=== PATIENT | male | born 1985 | race Two or more races ===

== ENCOUNTER 2023-04-12 08:45 | Outpatient (AMB) | payer OTHER, SELFPAY ==
--- NOTE | 2023-04-12 08:49 | MHC.PC.OV ---
Vital Signs 04/12/23 08:52 Height 5 ft 7 in Weight 174 lb 8 oz BMI 27.3 BP 142/92 H Blood Pressure Location Lt brachial Position Sitting Pulse 73 Pulse Source Pulse Oximeter Pulse Oximetry (%) 98 Oxygen Delivery Method Room Air Intake Visit Reasons: PROBATE PARALEGAL, establish care Intake Note: Patient is here today as a new patient to discuss bowel concerns. Allergies No Known Allergies Allergy (Verified 04/12/23 08:52) Tobacco use date assessed: 04/12/23 Dental Screening Dental Screen Date: 04/12/23 Did you have a dental visit in the last 12 months?: Yes Did you have a dental problem in the last 6 months where you did not have access to dental care?: No Was dental information given to patient?: Patient has dentist HPI HPI Comments History of Present Illness Details This is a 37-year-old male in today to establish care. He states that he has not seen a doctor in a couple years and he is interested on improving and maintaining his health. He has a chief complaint of acid reflux after he eats. He states that he has been using omeprazole p.r.n. to treat the reflex. Denies any nausea, vomiting, or fevers. States occasional constipation. Patient also states that he gets nervous when he comes into the doctor's office and that his blood pressure is usually lower than it was today. Patient has been educated to recheck his blood pressure at home to make sure that his values are closer to normal. [facility] Social History Housing: House Patient Tobacco Use Status: Never used Tobacco e-Cigarette/Vaping Use: Never Used service: No Current occupational status: employed Cognitive needs: No Hearing needs: No Vision needs: No Questionnaire PHQ-9 Over the last 2 weeks, how often have you been bothered by any of the following problems? 1. Little interest or pleasure in doing things: not at all 2. Feeling down, depressed, or hopeless: not at all 3. Trouble falling or staying asleep, or sleeping too much: not at all 4. Feeling tired or having little energy: not at all 5. Poor appetite or overeating: not at all 6. Feeling bad about yourself - or that you are a failure or have let yourself or your family down: not at all 7. Trouble concentrating on things, such as reading the newspaper or watching television: not at all 8. Moving or speaking so slowly that other people could have noticed. Or the opposite - being so fidgety or restless that you have been moving around a lot more than usual: not at all 9. Thoughts that you would be better off or of hurting yourself in some way: not at all Total score: 0 Depression Screening Interpretation: Negative Depression Screening Done: Yes 60375 - PHQ-9 Billing: Yes Source: Developed by Drs. Rodolfo Flores, Beatriz Milligan, Remy Mckenzie and colleagues, with an educational natalie from [employer] [facility]. Thrive Questionnaire Date Thrive assessed: 04/12/23 I am a: Patient What is your living situation today?: I have a steady place to live Within the past 12 months, did the food you bought not last and you didn't have the money to get more?: Never true Within the past 12 months, did you worry whether your food would run out before you got money to buy more?: Never true Do you have trouble paying for medicines?: No Do you have trouble getting transportation to medical appointments?: No Do you have trouble paying your heating and electricity bill?: No Do you have trouble taking care of your child, family member or friend?: No Do you have trouble with day-to-day activities such as bathing, preparing meals, shopping, managing finances, etc.?: No Are you currently unemployed and looking for a job?: No Are you interested in more education?: No Please select the resources that you would like help with: None Currently or been in a relationship where the following occur: no concerns reported AUDIT C Alcohol Use Questionnaire (AUDIT-C) 1. How often do you have a drink containing alcohol?: Monthly or less 2. How many drinks containing alcohol do you have on a typical day when you are drinking?: 1 or 2 3. How often do you have six or more drinks on one occasion?: Never Total Score: 1 Score Reviewed/Action Taken: Yes JUDY-7 AMB Questionnaire JUDY-7 Date JUDY - 7 assessed: 04/12/23 Feeling nervous, anxious, or on edge: 0 = Not at all Not being able to stop or control worryin = Not at all Worrying too much about different things: 0 = Not at all Trouble relaxin = Several days Being so restless that it is hard to sit still: 0 = Not at all Becoming easily annoyed or irritable: 0 = Not at all Feeling afraid as if something awful might happen: 0 = Not at all Total JUDY-7 score (0-4 normal; 5-9 mild; 10-14 moderate; 15-21 severe): 1 Source: Developed by Drs. Rodolfo Flores, Beatriz Milligan, Remy Mckenzie and colleagues, with an educational natalie from [facility]. JUDY-7 Assessment Billing JUDY-7 Assessment Tool: JUDY-7 Assessment 06723 Review of Systems Const Details: Constitutional : No Weight loss, No Fever, No Chills, No Fatigue, No Malaise ENT/Mouth : No sore throat, No Rhinorrhea, No hearing difficulties. Eyes: No Eye Pain, No Swelling, No Redness Cardiovascular : No Chest Pain, No SOB, No Dyspnea on Exertion, No Orthopnea, No Edema, No Palpitations Respiratory : No Cough, No Sputum, No Wheezing. Admits snoring. Gastrointestinal : No Nausea, No Vomiting, No Diarrhea, Admits Constipation and gas, No abdominal Pain, No Hematochezia, No Melena Genitourinary : No Dysuria, No Urinary Frequency, No Hematuria, Musculoskeletal : No joint pain, No Myalgias, No Joint Swelling Skin : No Skin Lesions, No rash Neuro : No Weakness, No Numbness, No Dizziness, No Headache Psych : No Anxiety/Panic, No Depression Heme/Lymph: No Bruising, No Bleeding,No Lymphadenopathy Endocrine : No Polyuria, No Polydipsia All other systems reviewed and are negative Physical exam (Primary Care) Vital Signs: Last Vital Signs Pulse 73 04/12/23 08:52 BP 142/92 H 04/12/23 08:52 Pulse Ox 98 04/12/23 08:52 Oxygen Delivery Method Room Air 04/12/23 08:52 Care Plan Goal for BP management: Patient will monitor blood pressure at home, states that he gets nervous when he comes into the doctor's office BMI result Body Mass Index 27.3 Tobacco/Smoking Status: Tobacco use Status Tobacco use date assessed 04/12/23 04/12/23 08:55 Patient Tobacco Use Status Never used Tobacco 04/12/23 08:55 e-Cigarette/Vaping Use Never Used 04/12/23 08:55 PHQ-9: PHQ-9 Score PHQ-9: Total score 0 04/12/23 09:54 Depression Screening Interpretation: Negative Thrive Assessment: Date of Thrive Assessment Date Thrive assessed 04/12/23 04/12/23 09:54 Currently or been in a relationship where the following occur: no concerns reported Const Other: Appearance: Alert.? Oriented X3.? No acute distress.? Head: Normocephalic, atraumatic, no step-offs or deformities Eyes: Pupils equal, round and reactive to light.? ENT: Pharynx normal.?TM intact and pearly farris. Neck: Normal inspection.? Neck supple.?Full ROM CVS: Normal heart rate and rhythm.? Pulses normal.?S1 and S2. Respiratory: No respiratory distress.? Breath sounds normal.? GI: Soft and nontender.?Patient has external hemorrhoid. Skin: Skin warm and dry.? Normal skin color.? Normal skin turgor.? Extremities: No lower extremity edema.? No calf ttp. 5/5 strength to bilateral upper and lower extremities Back: No midline tenderness, no C-spine tenderness, full range of motion, no CVA tenderness bilaterally Neuro: Oriented X 3.? No motor deficit.? No sensory deficit. CN 2-12 intact General: cooperative and no acute distress Results Reviewed Results Reviewed: Will call patient with lab results. Assessment and Plan Assessment & Plan (1) Encounter for routine adult physical exam with abnormal findings: Comment: Will draw lab CBC, CMP, lipid profile, UA, TSH, T4, vitamin-D, HIV. Patient was physical exam scheduled for 1 year. Code(s): Z00.01 - Encounter for general adult medical examination with abnormal findings (2) Snoring: Comment: Patient reportedly snores while sleeping. He will refer to Sleep Medicine to evaluate for apnea. Code(s): R06.83 - Snoring (3) GERD (gastroesophageal reflux disease): Comment: Patient has been instructed to use omeprazole 20 mg daily. Patient has also been instructed that when he has excessive gas he can use simethicone p.r.n. for relief. Patient will be trialed on omeprazole for 6 weeks. Code(s): K21.9 - Gastro-esophageal reflux disease without esophagitis Qualifiers: Esophagitis presence: without esophagitis Qualified Code(s): K21.9 - Gastro-esophageal reflux disease without esophagitis (4) External hemorrhoid: Comment: Patient has been instructed to use preparation H as directed. Code(s): K64.4 - Residual hemorrhoidal skin tags Orders: Orders TSH reflex Free T4 04/12/23 Z00.01 - Encounter for general adult medical examination with abnormal findings HIV Ab/Ag 04/12/23 Z00. - Encounter for general adult medical examination with abnormal findings Comprehensive Met. Panel 04/12/23 Z00. - Encounter for general adult medical examination with abnormal findings Complete Blood Count Auto Diff 04/12/23 Z00. - Encounter for general adult medical examination with abnormal findings Lipid Panel 04/12/23 Z00. - Encounter for general adult medical examination with abnormal findings Vitamin D 25-OH (D2 and D3) 04/12/23 Z00. - Encounter for general adult medical examination with abnormal findings UA CC w/rflx Micro + Cult 04/12/23 Z00. - Encounter for general adult medical examination with abnormal findings Referrals Sleep Medicine Referral R06.83 - Snoring Medications: New omeprazole 20 mg PO DAILY 30 caps 0RF simethicone (Gas Relief (simethicone)) 180 mg PO DAILY 20 caps 0RF Patient Instructions: Patient has been educated on the medication how to take them properly. The been educated on common side effect. It has been educated did on signs of worsening symptom when to report back to the office. Coding Level of Care Code New Pt Level 4 (29806) Diagnoses Encounter for routine adult physical exam with abnormal findings Z00.01 Snoring R06.83 Gastroesophageal reflux disease without esophagitis K21.9 Esophagitis presence: without esophagitis External hemorrhoid K64.4 Additional Codes JUDY-7 Assessment Billing - JUDY-7 Assessment Tool: JUDY-7 Assessment 14203 ([id number]) Time Spent (min) 30
[2023-04-12 08:52] VITALS: BP 142/92; PULSE 73; O2SAT 98; BMI 27.3
== END 2023-04-12 09:37 | disposition home or self-care (01) ==
PROVIDERS: Visit Provider Nurse Practitioner Primary Care
DX: Z00.01 Encounter for general adult medical examination with abnormal findings (principal); K21.9 Gastro-esophageal reflux disease without esophagitis; R06.83 Snoring; K64.4 Residual hemorrhoidal skin tags
CPT/HCPCS: 99203; 99385

== ENCOUNTER 2023-04-12 09:46 | Outpatient (REF) | payer OTHER, SELFPAY ==
[2023-04-12 13:49] LABS: MANUAL DIFF FLAG NO
[2023-04-12 14:03] LABS: Basophils Percent Auto 1.5 % (0-2); Eosinophils Percent Auto 1.5 % (0-4); Hematocrit 43.8 % (42.0-52.0); Hemoglobin 14.6 g/dl (14.0-18.0); Lymphocytes Absolute Auto 1.4 X10*3/uL (1.2-4.9); Lymphocytes Percent Auto 50.4 % (20-40); Mean Corpuscular HGB Conc 33.3 g/dl (31.0-36.0); Mean Corpuscular Hemoglobin 29.9 pg (27.0-33.0); Mean Corpuscular Volume 89.6 fL (80.0-98.0); Mean Platelet Volume 12.2 fL (9.4-12.4); Monocytes Absolute Auto 0.2 X10*3/uL (0.1-1.2); Monocytes Percent Auto 7.4 % (2-11); Neutrophils Absolute Auto 1.1 x10*3/uL (2.0-8.3); Neutrophils Percent Auto 39.2 % (45-73); Platelet Count 217 X10*3/uL (160-400); Red Blood Count 4.89 X10*6/uL (4.60-5.80); Red Cell Distribution Width 12.6 % (11.0-16.0); White Blood Count 2.7 X10*3/uL (4.8-10.8)
[2023-04-12 14:04] LABS: Appearance Urine Clear; Color Urine Yellow; Glucose Urine UA Negative (Negative); Leukocyte Esterase Urine Negative (Negative); Nitrite Urine Negative (Negative); PH 6.5 (5.0-9.0); Urine Blood Negative (Negative); Urine Ketones Negative (Negative); Urine Protein Negative (Neg-Trace)
[2023-04-12 14:26] LABS: Alanine Aminotransferase 29 U/L (0-40); Albumin Level 4.6 g/dL (3.5-5.0); Alkaline Phosphatase 39 U/L (39-117); Anion Gap 12 (12-20); Aspartate Amino Transferase 22 U/L (5-37); Bilirubin Total 0.8 mg/dL (0.0-1.0); Blood Urea Nitrogen 11 mg/dL (9-16); Calcium 9.6 mg/dL (8.4-10.2); Carbon Dioxide 26 mmol/L (22-29); Chloride 105 mmol/L (96-108); Cholesterol 210 mg/dL (<200); Estimated Glomerular Filt Rate > 60; Glucose Random 109 mg/dL (60-115); HDL Cholesterol 52 mg/dL (>40); LDL Cholesterol Calculated 144 mg/dL (<100); Potassium 4.4 mmol/L (3.3-5.1); Sodium 139 mmol/L (135-145); Total Protein 7.4 g/dL (6.5-8.0); Triglycerides 72 mg/dL (<150)
[2023-04-12 14:32] LABS: TSH reflex Free T4 1.77 uIU/mL (0.32-4.0)
[2023-04-13 08:18] LABS: HIV AB/AG Nonreactive (Nonreactive); HIV Num 1 0.04 S/CO (0.00-0.99)
[2023-04-15 13:04] LABS: Vitamin D 25-OH, D2 <4 ng/mL; Vitamin D 25-OH, D3 13 ng/mL; Vitamin D 25-OH, Total 13 ng/mL (30-100)
== END 2023-04-12 09:47 | disposition home or self-care (01) ==
LOC: HO.HMGCLDS 09:46
PROVIDERS: PCP Nurse Practitioner Primary Care; Visit Provider Nurse Practitioner Primary Care
DX: Z00.01 Encounter for general adult medical examination with abnormal findings (principal)
CPT/HCPCS: 36415; 80053; 80061; 81003; 82306; 84443; 85025; 87389

== ENCOUNTER 2023-06-17 07:55 | Outpatient (AMB) | payer OTHER, SELFPAY ==
--- NOTE | 2023-06-17 08:15 | MHC.OFFVIS ---
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 Snores a lot and very loud Allergies No Known Allergies Allergy (Verified 06/17/23 08:22) HPI HPI Comments History of Present Illness Details 38 y/o male patient presents for new in-person visit for sleep consultation. binder cutter ID [id number] utilized. Pt reports snoring, witnessed apnea spells, and disrupted sleep. He wakes up gasping and acid reflux. He has non refreshing sleep with daytime tiredness. Sleep questionnaire: Have you ever been diagnosed with a sleep disorder? No. Have you ever had a sleep study in the past? No. Have you ever been treated for a sleep disorder? No. Do you take medications for a sleep disorder? No. Do you snore? Yes. Do you wake up gasping at night? Yes. Do you have episodes of apneas? Yes If yes, are they witnessed? Yes. Do you have episodes of nocturnal chest pain or dyspnea? Yes. Do you have difficulty initiating sleep? No. Do you have difficulty maintaining sleep? Yes. Do you wake up tired? Yes. Do you have headaches upon awakening? No. Do you wake up with dry mouth or throat? Yes, sometimes. Do you have GERD? Yes. Do you have nocturia? No. Do you have nocturnal leg cramps? No. Do you have symptoms of restless legs? No. Do you act out your dreams? No. Sleep hygiene questionnaire: What is your usual sleep routine? Usual bedtime is at 11 pm; Usual wake up time is at 7 am. Do you take naps? No. Is your sleep environment cool, dark, and quiet? Yes. Do you exercise? Yes. Do you take caffeine or other stimulants? Yes, coffee in the morning and in the afternoon. Do you use electronics in bed? Yes. What is your work schedule? 9 to 5 pm Hypersomnolence questionnaire: Do you have daytime tiredness or fatigue? Yes. Do you easily fall asleep when inactive? No. Have you ever had episodes of sudden weakness? No. Have you ever had episodes of sudden weakness associated with strong emotions? No. PFSH Social History Housing: House Patient Tobacco Use Status: Never used Tobacco e-Cigarette/Vaping Use: Never Used service: No Current occupational status: employed Cognitive needs: No Hearing needs: No Vision needs: No Review of Systems Const All systems reviewed & are unremarkable except as noted in HPI and below Physical Exam Vital Signs: Last Vital Signs Pulse 65 06/17/23 08:23 BP 120/84 06/17/23 08:23 Pulse Ox 100 06/17/23 08:23 Oxygen Delivery Method Room Air 06/17/23 08:23 BMI result Body Mass Index 26.4 Const General: cooperative Nutritional Appearance: overweight Orientation/consciousness: patient oriented x3 Neck Neck: Yes full ROM and Yes supple Resp Effort & Inspection: normal respiratory effort and able to speak in complete sentences Neuro General: patient oriented x3 and gait normal Cranial nerves: Yes CN's II-XII intact bilaterally Cognition (Neuro): normal cognition Gait exam (Neuro): Normal gait present Motor exam (neuro): 5/5 motor strength present throughout Psych Appearance: grossly normal Mental Status: mental status grossly normal Speech and movement: Normal speech and movement present Affect: normal affect Attitude: cooperative Assessment & Plan Assessment & Plan (1) Daytime sleepiness: Code(s): R40.0 - Somnolence (2) Snoring: Comment: Patient reportedly snores while sleeping. He will refer to Sleep Medicine to evaluate for apnea. Code(s): R06.83 - Snoring (3) GERD (gastroesophageal reflux disease): Comment: Patient has been instructed to use omeprazole 20 mg daily. Patient has also been instructed that when he has excessive gas he can use simethicone p.r.n. for relief. Patient will be trialed on omeprazole for 6 weeks. Code(s): K21.9 - Gastro-esophageal reflux disease without esophagitis Qualifiers: Esophagitis presence: without esophagitis Qualified Code(s): K21.9 - Gastro-esophageal reflux disease without esophagitis Plan Pt is advised to undergo home sleep study to assess for sleep apnea. Will f/u with pt after study to discuss results and appropriate treatment options. Sleep hygiene education provided. Advised patient not to have dinner late time and limit afternoon coffee intake to prevent acid reflux. Pt to call with any worsening concerns or questions. Orders: Orders RT home sleep study Today R06.83 - Snoring, R40.0 - Somnolence Coding Level of Care Code New Pt Level 3 (27058) Diagnoses Daytime sleepiness R40.0 Snoring R06.83 Gastroesophageal reflux disease without esophagitis K21.9 Esophagitis presence: without esophagitis
[2023-06-17 08:23] VITALS: BP 120/84; PULSE 65; O2SAT 100; BMI 26.4
== END 2023-06-17 08:52 | disposition home or self-care (01) ==
PROVIDERS: PCP Nurse Practitioner Primary Care; Visit Provider Nurse Practitioner Family
DX: R40.0 Somnolence (principal); R06.83 Snoring; K21.9 Gastro-esophageal reflux disease without esophagitis
CPT/HCPCS: 99203

== ENCOUNTER → 2023-06-17 07:55 | Outpatient (BNVA) | payer OTHER, SELFPAY | PROVIDERS: PCP Nurse Practitioner Primary Care; Visit Provider Nurse Practitioner Family | DX: R06.83 Snoring (principal); R40.0 Somnolence; K21.9 Gastro-esophageal reflux disease without esophagitis | CPT/HCPCS: 99202 ==

== ENCOUNTER → 2023-08-16 07:52 | Outpatient (REF) | payer OTHER, SELFPAY | LOC: HO.SL 07:52 | PROVIDERS: PCP Nurse Practitioner Primary Care; Visit Provider Nurse Practitioner Family | DX: G47.33 Obstructive sleep apnea (adult) (pediatric) (principal); R06.83 Snoring; R40.0 Somnolence | CPT/HCPCS: 95806 ==

== ENCOUNTER → 2023-08-16 08:22 | Outpatient (BNV) | payer OTHER, SELFPAY | PROVIDERS: PCP Nurse Practitioner Primary Care; Visit Provider Psychiatry & Neurology Neurology | DX: G47.33 Obstructive sleep apnea (adult) (pediatric) (principal) | CPT/HCPCS: 95806 ==

== ENCOUNTER 2024-02-16 09:33 | Outpatient (AMB) | payer OTHER, SELFPAY ==
--- NOTE | 2024-02-16 10:17 | MHC.OFFWIV ---
Intake Vital Signs 02/16/24 10:19 Height 5 ft 7 in Weight 170 lb BMI 26.6 BP 124/80 Blood Pressure Location Rt brachial Position Sitting Pulse 70 Pulse Source Pulse Oximeter Pulse Oximetry (%) 97 Oxygen Delivery Method Room Air Intake Visit Reasons: EP pain when utilizing the bathroom & blood Intake Note: Patient here for hemorrhoids that he noticed on Wednesday, he states he used the bathroom today and was bleeding. He has used OTC cream which has not helped. Patient Tobacco Use Status: Never used Tobacco Allergies No Known Allergies Allergy (Verified 02/16/24 10:20) Do you need a note to return to daycare/school/sports/work: Yes HPI EP pain when utilizing the bathroom & blood HPI Details This note is constructed using voice recognition software. While every effort has been made to ensure accuracy, export sales assistant errors may have been included. The patient is a 38 year old male who presents to the clinic today with bleeding hemorrhoids since Wednesday. He reports that he has pain when he is moving his bowels, which have been hard and less frequent than normal. He has had some blood on the tissue after this. He denies abdomen pain, loss of appetite, nausea vomiting, diarrhea. [facility] Social History Housing: House Patient Tobacco Use Status: Never used Tobacco e-Cigarette/Vaping Use: Never Used service: No Current occupational status: employed Cognitive needs: No Hearing needs: No Vision needs: No Review of Systems Const All systems reviewed & are unremarkable except as noted in HPI and below Physical Exam Vital Signs: Last Vital Signs Pulse 70 02/16/24 10:19 BP 124/80 02/16/24 10:19 Pulse Ox 97 02/16/24 10:19 Oxygen Delivery Method Room Air 02/16/24 10:19 BMI result Body Mass Index 26.6 Const General: cooperative, healthy appearing, comfortable, no acute distress and alert Orientation/consciousness: patient oriented x3 Limitations: no limitations Resp Effort & Inspection: normal respiratory effort and able to speak in complete sentences GI Inspection: Yes normal to inspection Palpation (GI): Soft to palpation and nontender Percussion: Yes normal to percussion Auscultation: normal bowel sounds Rectal Exam - Male: Yes External hemorrhoid(s) present (with small area of excoriation) Neuro General: patient oriented x3 Psych Appearance: grossly normal Mental Status: mental status grossly normal Speech and movement: Normal speech and movement present Affect: normal affect Assessment & Plan Assessment & Plan (1) External hemorrhoid: Code(s): K64.4 - Residual hemorrhoidal skin tags Plan: Hydrocortisone suppository sent for symptomatic management, as well as Colace for stool softening. Advised patient that he needs to keep his stool soft to help reduce symptoms. OTC medication advised for pain. Advised follow up with worsening or failure to resolve. Plan See above for full details and plan. Medications: New hydrocortisone acetate 25 mg DC BID 6 days PRN 12 ea 0RF hemorrhoids docusate sodium 100 mg PO BID 10 days 20 caps 0RF Coding Level of Care Code Est Pt Level 3 (32781) Diagnoses External hemorrhoid K64.4
[2024-02-16 10:19] VITALS: BP 124/80; PULSE 70; O2SAT 97; BMI 26.6
== END 2024-02-16 11:13 | disposition home or self-care (01) ==
PROVIDERS: PCP Nurse Practitioner Primary Care; Visit Provider Registered Nurse
DX: K64.4 Residual hemorrhoidal skin tags (principal)

== ENCOUNTER → 2024-02-16 09:33 | Outpatient (BNVA) | payer OTHER, SELFPAY | PROVIDERS: PCP Nurse Practitioner Primary Care; Visit Provider Registered Nurse | DX: K64.4 Residual hemorrhoidal skin tags (principal) | CPT/HCPCS: 99212 ==

== ENCOUNTER 2024-04-17 12:43 | Outpatient (AMB) | payer OTHER, SELFPAY ==
[2024-04-17 13:42] VITALS: BP 136/86; PULSE 75; O2SAT 99; BMI 27.7
--- NOTE | 2024-04-17 13:42 | MHC.PC.OV ---
Vital Signs 04/17/24 13:42 Height 5 ft 7 in Weight 177 lb BMI 27.7 BP 136/86 Blood Pressure Location Lt brachial Position Sitting Pulse 75 Pulse Source Pulse Oximeter Pulse Oximetry (%) 99 Oxygen Delivery Method Room Air Intake Visit Reasons: transfer from [facility] Intake Note: Pt is here today transfer from [facility]/ Pt request PSA test: Family Hx father of prostate cancer Allergies No Known Allergies Allergy (Verified 04/17/24 14:03) Medication List - Last Reconciled 04/17/24 by Shelby Lara MD No Known Home Meds Tobacco use date assessed: 04/17/24 Dental Screening Dental Screen Date: 04/17/24 Did you have a dental visit in the last 12 months?: No Did you have a dental problem in the last 6 months where you did not have access to dental care?: No Was dental information given to patient?: Patient declined HPI transfer from [facility] HPI Details 38-year-old male here to establish care with new PCP and for a physical exam - Has hypertension diagnosed earlier, with recent blood pressure readings noted to be slightly elevated. - Hyperlipidemia was identified last year; the patient was advised to manage cholesterol levels through diet and exercise. - Vitamin D deficiency was previously diagnosed, with past values noted at 13 ng/mL - Reflux symptoms occur postprandially, particularly after consuming tomatoes, manifesting as heartburn. - Hemorrhoids previously treated with topical cream, with symptom improvement noted since the last visit. - Leukopenia was noted on prior blood work with a WBC count of 2.7, prompting ongoing monitoring to rule out underlying pathology. PENDING SALE TO [facility] Medical History (Updated 04/23/24 @ 22:16 by Shelby Lara MD) Leukopenia Heartburn symptom External hemorrhoid Family History (Updated 04/17/24 @ 13:58 by Jory Shaikh CMA) Father Prostate cancer Paternal Uncle Prostate cancer Social History Housing: House Patient Tobacco Use Status: Never used Tobacco e-Cigarette/Vaping Use: Never Used service: No Current occupational status: employed Cognitive needs: No Hearing needs: No Vision needs: No Questionnaire PHQ-9 Over the last 2 weeks, how often have you been bothered by any of the following problems? Depression Screening Done: Yes 58639 - PHQ-9 Billing: Patient declined-do not bill Source: Developed by Drs. Rodolfo Flores, Beatriz Milligan, Remy Mckenzie and colleagues, with an educational natalie from [employer]. Thrive Questionnaire Date Thrive assessed: 04/17/24 I am a: Patient What is your living situation today?: I choose not to answer this question Within the past 12 months, did the food you bought not last and you didn't have the money to get more?: I choose not to answer this question Within the past 12 months, did you worry whether your food would run out before you got money to buy more?: I choose not to answer this question Do you have trouble paying for medicines?: I choose not to answer this question Do you have trouble getting transportation to medical appointments?: I choose not to answer this question Do you have trouble paying your heating and electricity bill?: I choose not to answer this question Do you have trouble taking care of your child, family member or friend?: I choose not to answer this question Do you have trouble with day-to-day activities such as bathing, preparing meals, shopping, managing finances, etc.?: I choose not to answer this question Are you currently unemployed and looking for a job?: I choose not to answer this question Are you interested in more education?: I choose not to answer this question THRIVE Score: 0 AUDIT C Alcohol Use Questionnaire (AUDIT-C) 1. How often do you have a drink containing alcohol?: Monthly or less Total Score: 1 JUDY-7 AMB Questionnaire JUDY-7 Date JUDY - 7 assessed: 04/17/24 Source: Developed by Drs. Rodolfo Flores, Beatriz Milligan, Remy Mckenzie and colleagues, with an educational natalie from [employer]. Review of Systems Const Denies body aches, Denies fatigue, Denies fever(s), Denies headache(s) and Denies weakness Eyes Denies change in vision, Denies eye discharge and Denies itchy eyes ENT Denies dizziness, Denies headache(s), Denies nasal congestion, Denies nasal discharge and Denies sore throat Card Denies chest pain, Denies lightheadedness, Denies palpitations and Denies dyspnea Resp Denies chest congestion, Denies cough, Denies dyspnea and Denies wheezing GI Denies abdominal pain, Denies change in bowel habits and Reports heartburn Denies hematuria, Denies difficulty urinating, Denies dysuria, Denies urinary frequency and Denies urinary urgency Musc Reports no additional complaints Skin/Breast Denies breast pain, Denies breast mass, Denies lesions and Denies rash Neuro Denies dizziness, Denies headache(s) and Denies weakness Psych Reports no additional complaints Endo Denies fatigue, Denies polydipsia, Denies polyuria and Denies palpitations Curtis/Lymph Denies easy bruising Aller/Immun Denies itchy eyes, Denies seasonal rhinorrhea and Denies wheezing Physical exam (Primary Care) Vital Signs: Last Vital Signs Pulse 75 04/17/24 13:42 BP 136/86 04/17/24 13:42 Pulse Ox 99 04/17/24 13:42 Oxygen Delivery Method Room Air 04/17/24 13:42 BMI result Body Mass Index 27.7 Tobacco/Smoking Status: Tobacco use Status Tobacco use date assessed 04/17/24 04/17/24 13:44 Patient Tobacco Use Status Never used Tobacco 04/17/24 13:42 e-Cigarette/Vaping Use Never Used 04/17/24 13:42 Thrive Assessment: Date of Thrive Assessment Date Thrive assessed 04/17/24 04/17/24 13:45 Const General: comfortable, no acute distress and alert Orientation/consciousness: patient oriented x3 HENMT Ears: external ears normal, TM's normal bilaterally and EAC's normal General nose exam: Normal external nose present and No nasal discharge present Mouth: Normal oral and palatal mucosa present, oropharynx normal and moist mucous membranes Eyes General: appearance normal, both eyes and all related structures Conjunctivae: conjunctivae normal Sclerae: sclerae normal Pupils: Equal, round and reactive pupils present EOM: EOMs intact bilaterally Neck Neck: Yes full ROM, Yes no lymphadenopathy and Yes supple Resp Effort & Inspection: normal respiratory effort and able to speak in complete sentences Auscultation: clear to auscultation bilaterally Cardio Rate: regular rate Rhythm: regular rhythm Heart sounds: S1 normal heart sound present and S2 normal heart sound present GI Palpation (GI): Soft to palpation, nontender and no masses Auscultation: normal bowel sounds Back/Spine/Pelvis Back: No back tenderness Skin General skin exam: no rashes or lesions noted Neuro General: patient oriented x3, gait normal, tone normal, moves all extremities, Normal light touch and pain sensation and no focal motor deficits Cranial nerves: Yes CN's II-XII intact bilaterally and Yes Equal, round and reactive pupils present Cognition (Neuro): normal cognition Extrem General: Yes full ROM, Yes no joint enlargement, Yes no clubbing, cyanosis or edema and Yes no calf tenderness Psych Appearance: grossly normal and well kempt Mental Status: mental status grossly normal Speech and movement: Normal speech and movement present Affect: normal affect Attitude: cooperative Thought process: Normal thought process present Thought content: Normal thought content present, suicidality and no homicidality Coding Level of Care Code Est Pt Prev Care 18-39y(65342) Diagnoses Encounter for routine adult physical exam with abnormal findings Z00.01 Neutropenia, unspecified type D70.9 Leukopenia type: neutropenia Neutropenia type: unspecified Heartburn symptom R12 Advanced directives, counseling/discussion Z71.89 Assessment & Plan Assessment & Plan (1) Encounter for routine adult physical exam with abnormal findings: Comment: Will draw lab CBC, CMP, lipid profile, UA, TSH, T4, vitamin-D, HIV. Patient was physical exam scheduled for 1 year. Code(s): Z00.01 - Encounter for general adult medical examination with abnormal findings Category: Medical Plan: Will check appropriate labs. Recommended dental visit every 6 months and regular eye exams, at least every 2 years. Take adequate calcium in diet and vitamin-D 3 at 2000 IU per cap once a day, in addition to weight-bearing exercises to help maintain good muscle tone and weight control. Instructed to do self-testicular exam check for any mass. Has had 2 COVID vaccinations in the past but does not want to get further vaccines including COVID booster (2) Leukopenia: Code(s): D72.819 - Decreased white blood cell count, unspecified Category: Medical Qualifiers: Leukopenia type: neutropenia Neutropenia type: unspecified Qualified Code(s): D70.9 - Neutropenia, unspecified Plan: Continue to monitor CBC (3) Heartburn symptom: Code(s): R12 - Heartburn Category: Medical Plan: Prescribed famotidine, advised to avoid triggers for heartburn (4) Advanced directives, counseling/discussion: Code(s): Z71.89 - Other specified counseling Plan: Initiated the conversation about Advanced Directives. Advanced Directives help patients prepare for current and future decisions about their medical treatment and place of care. Discussed with patient that it is a process where a patients current condition and prognosis are reviewed, their wishes for information regarding their illness are elicited, and likely medical dilemmas are presented and options discussed. Healthcare proxy form completed today. The form can be amended as needed, reviewed yearly and make changes as needed Orders: Orders Alanine Aminotransferase 04/21/24 R12 - Heartburn, Z00.01 - Encounter for general adult medical examination with abnormal findings Basic Metabolic Panel Fasting 04/21/24 R12 - Heartburn, Z00.01 - Encounter for general adult medical examination with abnormal findings Lipid Panel 04/21/24 R12 - Heartburn, Z00.01 - Encounter for general adult medical examination with abnormal findings Vitamin D 25-OH Total 04/21/24 R12 - Heartburn, Z00.01 - Encounter for general adult medical examination with abnormal findings Aspartate Amino Transferase 04/21/24 R12 - Heartburn, Z00.01 - Encounter for general adult medical examination with abnormal findings Complete Blood Count Auto Diff 04/21/24 D72.819 - Decreased white blood cell count, unspecified Medications: New famotidine 40 mg PO DAILY 30 tabs 2RF
== END 2024-04-17 14:23 | disposition home or self-care (01) ==
PROVIDERS: PCP Nurse Practitioner Primary Care; Visit Provider Internal Medicine
DX: Z00.01 Encounter for general adult medical examination with abnormal findings (principal); D70.9 Neutropenia, unspecified; R12 Heartburn; Z71.89 Other specified counseling

== ENCOUNTER → 2024-04-17 12:43 | Outpatient (BNVA) | payer OTHER, SELFPAY | PROVIDERS: PCP Nurse Practitioner Primary Care; Visit Provider Internal Medicine | DX: Z00.01 Encounter for general adult medical examination with abnormal findings (principal); D70.9 Neutropenia, unspecified; R12 Heartburn; Z71.89 Other specified counseling | CPT/HCPCS: 99395 ==

== ENCOUNTER 2024-04-21 08:05 | Outpatient (REF) | payer OTHER, SELFPAY ==
[2024-04-21 10:31] LABS: MANUAL DIFF FLAG NO
[2024-04-21 10:41] LABS: Basophils Percent Auto 1.1 % (0-2); Eosinophils Absolute Auto 0.1 X10*3/uL (0.0-0.4); Eosinophils Percent Auto 1.7 % (0-4); Hematocrit 43.6 % (42.0-52.0); Hemoglobin 15.1 g/dl (14.0-18.0); Lymphocytes Absolute Auto 1.6 X10*3/uL (1.2-4.9); Lymphocytes Percent Auto 46.7 % (20-40); Mean Corpuscular HGB Conc 34.6 g/dl (31.0-36.0); Mean Corpuscular Hemoglobin 30.3 pg (27.0-33.0); Mean Corpuscular Volume 87.4 fL (80.0-98.0); Mean Platelet Volume 11.5 fL (9.4-12.4); Monocytes Absolute Auto 0.3 X10*3/uL (0.1-1.2); Monocytes Percent Auto 9.1 % (2-11); Neutrophils Absolute Auto 1.5 x10*3/uL (2.0-8.3); Neutrophils Percent Auto 41.4 % (45-73); Platelet Count 239 X10*3/uL (160-400); Red Blood Count 4.99 X10*6/uL (4.60-5.80); Red Cell Distribution Width 12.9 % (11.0-16.0); White Blood Count 3.5 X10*3/uL (4.8-10.8)
[2024-04-21 11:06] LABS: Alanine Aminotransferase 52 U/L (0-40); Anion Gap 10 (12-20); Aspartate Amino Transferase 30 U/L (5-37); Blood Urea Nitrogen 17 mg/dL (9-16); Calcium 9.6 mg/dL (8.4-10.2); Carbon Dioxide 27 mmol/L (22-29); Chloride 107 mmol/L (96-108); Cholesterol 206 mg/dL (<200); Estimated Glomerular Filt Rate > 60; Glucose Fasting 115 mg/dL (60-99); HDL Cholesterol 51 mg/dL (>40); LDL Cholesterol Calculated 143 mg/dL (<100); Potassium 4.8 mmol/L (3.3-5.1); Sodium 139 mmol/L (135-145); Triglycerides 63 mg/dL (<150)
[2024-04-21 11:11] LABS: Vitamin D 25-OH Total 60.3 ng/mL (>30)
== END 2024-04-21 08:06 | disposition home or self-care (01) ==
LOC: HO.HMGCLDS 08:05
PROVIDERS: PCP Internal Medicine; Visit Provider Internal Medicine
DX: Z00.01 Encounter for general adult medical examination with abnormal findings (principal); R12 Heartburn; D72.819 Decreased white blood cell count, unspecified
CPT/HCPCS: 36415; 80048; 80061; 82306; 84450; 84460; 85025